=== PATIENT | male | born 1940 | race Caucasian/White ===

== ENCOUNTER → 2016-06-27 | Outpatient (CLI) | payer MEDICARE, OTHER ==
[2016-06-27 15:40] LABS: INTERNATIONAL NORMALIZED RATIO 2.8 RATIO; PROTHROMBIN TIME - PATIENT 32.4 SEC (9.8-11.6)
== END ==
LOC: PLAB 13:48
DX: I48.2 Chronic atrial fibrillation (principal)
CPT/HCPCS: 36415; 85610

== ENCOUNTER → 2017-07-04 | Outpatient (CLI) | payer MEDICARE, OTHER ==
[2017-07-04 14:30] LABS: INTERNATIONAL NORMALIZED RATIO 3.2 RATIO; PROTHROMBIN TIME - PATIENT 32.3 SEC (9.8-11.6)
== END ==
LOC: PLAB 13:21
DX: I48.2 Chronic atrial fibrillation (principal)
CPT/HCPCS: 36415; 85610